=== PATIENT | male | born 2000 | race African-American/Black ===

== ENCOUNTER 2024-01-14 03:52 | Emergency (ER) | payer SELFPAY ==
[~2024-01-14] VITALS: Ht 167.6 cm; Wt 144.0 kg
[2024-01-14 04:42] VITALS: O2SAT 100
[2024-01-14] MEDS: ACETAMINOPHEN 325MG TABLET PO ONE (06:45)
[2024-01-14] MEDS ORDERED: KETO10TA2 MT (07:18)
[2024-01-14 07:45] VITALS: BP 119/60; PULSE 87; RESP 20; TEMP 37.00296; O2SAT 100
[2024-01-14] MEDS: OXYCODONE HCL/ACETAMINOPHEN 5/325MG TABLET PO ONE (07:47)
== END 2024-01-14 08:43 | disposition home or self-care (01) ==
LOC: ER 04:42
DX: S09.90XA Unspecified injury of head, initial encounter (principal); M25.531 Pain in right wrist; M54.9 Dorsalgia, unspecified; J45.909 Unspecified asthma, uncomplicated; Z88.0 Allergy status to penicillin; V49.88XA Car occupant (driver) (passenger) injured in other specified transport accidents, initial encounter; Y93.89 Activity, other specified; Y92.89 Other specified places as the place of occurrence of the external cause; Y99.8 Other external cause status
CPT/HCPCS: 72131; 73110; 99284